=== PATIENT | male | born 1965 | race Caucasian/White ===

== ENCOUNTER 2023-02-22 09:09 | Emergency (ER) | payer OTHER, SELFPAY ==
--- NOTE | ~2023-02-22 | XR_ITS ---
EXAMINATION: XR chest 2V DATE: 02/22/2023 09:45 INDICATION: Chest pain. TECHNIQUE: Frontal and lateral views of the chest were obtained. COMPARISON: None. FINDINGS: There is no pneumonia, pleural effusion, or pneumothorax. The heart size is normal. Screws overlie right shoulder. IMPRESSION: 1. No acute cardiopulmonary disease. Reviewed, dictated and finalized at location A.
--- NOTE | ~2023-02-22 | CT_ITS ---
EXAMINATION: CTA chest PE protocol DATE: 02/22/2023 10:56 INDICATION: Left chest pain. TECHNIQUE: Computed tomography angiography (CTA) of the chest was performed with 100 mL Omnipaque-350 intravenous contrast timed to evaluate the pulmonary arteries. Coronal maximum intensity projection 3D-reconstructions were created by the technologist. Automated exposure control and iterative reconst ruction technique were employed. The dose-length product was 878.26 mGy-cm. COMPARISON: None. FINDINGS: The lungs demonstrate mild dependent atelectasis. No pleural effusion. The heart size is no rmal. No pericardial effusion. There is no pulmonary embolus. There are screws in right scapula. Ther e is severe thoracic spondylosis. IMPRESSION: 1. No pulmonary embolus. Reviewed, dictated and finalized at location A. IMPRESSION: 1. No pulmonary embolus.
[2023-02-22 09:12] VITALS: BP 135/80; PULSE 97; RESP 20; TEMP 36.7; O2SAT 98
--- NOTE | 2023-02-22 09:16 | ECG_ITS ---
Measurements Intervals [place] Rate: 85 P: 39 [place]: 150 QRS: -11 QRSD: 111 T: 48 QT: 348 QTc: 416 Interpretive Statements SINUS RHYTHM INTRAVENTRICULAR CONDUCTION DELAY MINIMAL Q WAVES- HIGH LATERAL LEADS BORDERLINE ECG NO PREVIOUS ECG AVAILABLE FOR COMPARISON Electronically Signed On 02-22-2023 9:22:04 CDT by Giacomo Horner D.O.
--- NOTE | 2023-02-22 09:20 | ED.CHESTPAIN ---
HPI - Chest Pain General Chief Complaint: Chest Pain Stated Complaint: cp Time Seen by Provider: 02/22/23 09:16 Source: patient Mode of arrival: ambulatory Limitations: no limitations History of Present Illness HPI narrative: Mr. Seth is a 58-year-old male patient presenting to the ER today with complaints of left-sided chest pain via EMS. He reports that he is having some radiation/ numbness and tingling in the left arm. States pain started about 2-3 hours ago with some pressure to the left side of the chest. Currently rates the discomfort 6/10. States he was getting ready to unload a truck when the pain began. Has eaten an ache casserole this morning. No history of GERD. No recent heavy lifting or working out. Denies any associated shortness of breath, dizziness, headache, or visual changes. No history of any cardiac issues in the past. He denies any history of hypertension or high cholesterol. He is a nonsmoker and occasionally drinks alcohol. Related Data Allergies Allergy/AdvReac Type Severity Reaction Status Date / Time No Known Allergies Allergy Verified 02/22/23 09:24 Review of Systems Review of Systems: Pertinent positives per HPI. Patient denies any fever, chills, rash, headache, visual changes, dizziness, cough, runny nose, sore throat, shortness of breath, palpitations, nausea, vomiting, diarrhea, constipation, abdominal pain, or any urinary issues. PMFSH Comments At the time of my signature, I reviewed and agree with the nursing past medical, surgical, social, and family history. There is no relevant family history pertinent to the patient complaint. Exam Narrative: General: Well-developed, obese, in no apparent distress Head: Normocephalic, atraumatic. Cardio: Regular rate and rhythm, s1 and s2 normal, no murmur appreciated. Resp: Clear to auscultation bilaterally, no rhonchi, rales, wheezing or rubs. Extremities: No deformity, no edema, no cyanosis, capillary refill less than 2 seconds,strong bilateral hand grasp, peripheral pulses palpable and strong. Integumentary: [place], warm, and dry, intact without lesion, no rashes. Course Course Emergency Course: Portions of this record may have been created with voice recognition software. Vital Signs Vital signs: Vital Signs Temperature 36.7 C 02/22/23 09:12 Pulse Rate 97 02/22/23 09:12 Respiratory Rate 20 02/22/23 09:12 Blood Pressure 135/80 02/22/23 09:12 Pulse Oximetry 98 02/22/23 09:12 Oxygen Delivery Room Air 02/22/23 09:12 Temperature 36.7 C 02/22/23 09:12 Pulse Rate 71 02/22/23 14:19 Respiratory Rate 20 02/22/23 14:19 Blood Pressure 105/76 02/22/23 14:19 Pulse Oximetry 98 02/22/23 14:19 Oxygen Delivery Room Air 02/22/23 09:21 Vital signs reviewed MDM - Chest Pain MDM Narrative Medical decision making narrative: At the time of visit patient is resting on the exam table. Aspirin 324mg and 1 nitro was given via EMS. EKG completed and shows intraventricular conduction delay with minimal Q-waves showing in the high lateral leads, initial troponin and 3 hour troponin was negative. D-dimer was slight elevated so CT to R/O PE was completed and negative for PE. I suspect that patient is having atypical chest pain. Heart score of 3. Patient pain has improved while in the ED. Will send home with return precautions reviewed. Recommend follow up with his PCP this week for further work up- stress test/ lipid panel. Supportive measures were discussed and patient voiced understanding. Differential Diagnosis Differential diagnosis: Likely stable angina, unstable angina pectoris, atypical chest pain, st elevation myocardial infarction, costochondritis and chest pain Lab Data 02/22/23 09:25 02/22/23 09:25 Labs: Lab Results 02/22/23 02/22/23 Range/Units 09:25 12:31 WBC 8.6 (4.5-10.0) K/mm3 RBC 5.25 (4.6-6.20) M/mm3 Hgb 14.7 (14.0-18.0) g
[2023-02-22 09:21] VITALS: PULSE 92; O2SAT 98
[2023-02-22 09:38] LABS: Basophils Absolute Auto 0.1 K/mm3 (0.0-0.1); Basophils Percent Auto 0.6 % (0.2-1.2); Eosinophils Absolute Auto 0.1 K/mm3 (0-0.3); Eosinophils Percent Auto 0.9 % (0-4.4); Hematocrit 45.3 % (42.0-52.0); Hemoglobin 14.7 g/dL (14.0-18.0); Immature Granulocyte Absolute 0.04 K/mm3 (0.00-0.031); Immature Granulocyte Percent A 0.5 % (0-0.5); Lymphocytes Absolute Auto 1.52 K/mm3 (0.9-3.2); Lymphocytes Percent Auto 17.6 % (18.3-44.2); Mean Corpuscular HGB Conc 32.5 g/dl (32-36); Mean Corpuscular Volume 86.3 fl (80-100); Mean Platelet Volume 9.5 fl (7.4-10.4); Monocytes Absolute Auto 0.7 K/mm3 (0.1-0.6); Monocytes Percent Auto 7.9 % (2.6-8.5); Neutrophils Absolute Auto 6.3 K/mm3 (1.3-6.7); Neutrophils Percent Auto 72.5 % (45.5-73.1); Platelet Count Result 298 k/mm3 (150-375); Red Blood Count 5.25 M/mm3 (4.6-6.20); Red Cell Distribution Width 13.7 % (11.5-14.5); White Blood Count 8.6 K/mm3 (4.5-10.0)
[2023-02-22 09:44] LABS: Alanine Aminotransferase 38 U/L (6-50); Albumin Level 4.3 g/dL (3.5-5.1); Alkaline Phosphatase 61 U/L (38-126); Anion Gap 8 mmol/L (8-16); Aspartate Amino Transferase 33 U/L (17-59); Bilirubin,Total 1.4 mg/dL (0.2-1.3); Blood Urea Nitrogen 12 mg/dL (9-20); Carbon Dioxide 24 mmol/L (22-30); Chloride 102 mmol/L (98-107); Estimated CRCL calculation 106 ml/min; Estimated Glomerular Filt Rate > 60; Glucose 110 mg/dL (65-110); Lipase 41 U/L (23-300); Potassium 4.3 mmol/L (3.4-5.0); Sodium 134 mmol/L (137-145)
[2023-02-22 09:53] LABS: INR 1.1; Partial Thromboplastin Time 27.1 SECONDS (22.3-36.8); Prothrombin Time 14.3 Seconds (11.1-14.7)
[2023-02-22 09:56] LABS: Troponin I < 0.012 ng/mL (0.000-0.034)
[2023-02-22 10:15] LABS: NT Pro B Type Natriuretic Pept 53 pg/mL (19.9-100)
[2023-02-22 10:24] LABS: D Dimer 0.76 ug/mL (<0.48)
[2023-02-22 11:08] VITALS: BP 113/69; PULSE 91; RESP 20; O2SAT 96
[2023-02-22 13:00] VITALS: BP 123/72; PULSE 86; RESP 20; O2SAT 98
[2023-02-22 13:02] LABS: Troponin I < 0.012 ng/mL (0.000-0.034)
[2023-02-22 13:36] VITALS: BP 98/66; PULSE 72; RESP 20; O2SAT 97
[2023-02-22 14:19] VITALS: BP 105/76; PULSE 71; RESP 20; O2SAT 98
== END 2023-02-22 14:20 | disposition home or self-care (01) ==
PROVIDERS: Emergency Medicine; Emergency Provider Nurse Practitioner Family
DX: R07.89 Other chest pain (principal)
CPT/HCPCS: 36415; 71046; 71275; 80053; 83690; 83880; 84484; 85025; 85380; 85610; 85730; 93005; 99284; Q9967